=== PATIENT | female | born 1940 | race Caucasian/White ===

== ENCOUNTER 2018-11-26 07:03 | Day surgery (SDC) | payer MEDICARE, BC ==
[2018-11-26] MEDS ORDERED: fentaNYL 100 MCG/2 ML SDV ONE (07:15)
[2018-11-26] MEDS ORDERED: Propofol 200 MG/20 ML SDV ONE (07:15)
[2018-11-26] MEDS ORDERED: Sodium Chloride 0.9% 1,000 ML IV SCH (08:30)
[2018-11-26] MEDS ORDERED: Alum Hydrox/Mag Hydrox/Simeth 360 ML, Lidocaine 2% 60 ML PO PRN ×2 (09:34)
--- NOTE | 2018-11-26 12:55 | OR ---
DATE OF PROCEDURE: 11/26/2018 SURGEON: Zhou Ulloa MD PROCEDURES: 1. Barrx radiofrequency ablation. 2. EGD. COMPLICATIONS: None. MEDICAL LAB SCIENTIST: None. ANESTHESIA: MAC. PREOPERATIVE DIAGNOSIS: Bruce's esophagus. POSTOPERATIVE DIAGNOSIS: Bruce's esophagus. RISKS: Risks, benefits, alternatives, and limitations including, but not limited to infection, bleeding, the current scientific indications for this surgery, and other risks not listed here were explained to the patient, who wished to proceed. PROCEDURE IN DETAIL: The patient was placed in left lateral decubitus position. The EGD scope was introduced and advanced atraumatically in the second part of the duodenum. No duodenitis. No abnormality. The stomach itself did not show any gross abnormality. On retroflexion, the patient was noted to have a sliding hernia, which was small in size. The GE junction was measured at 30, and the top of the Bruce's esophagus was at 32 cm. A wire was advanced under direct guidance. The scope was then removed. The RFA ablation catheter was introduced and straddled the aforementioned Bruce's esophagus. The scope was introduced to verify positioning. The balloon was inflated. The RFA probe was deployed. Of note, Mucomyst was used prior to this. The device was then removed. The scraper was introduced and the ablated tissue was removed. The device was then reintroduced and under direct guidance, this was ablated a second time. The scope was then reintroduced again, after the device was removed. No abnormalities noted. The patient tolerated the procedure well. Zhou Ulloa MD /[id number]
[2018-11-26] MEDS ORDERED: Acetylcysteine 600 MG, Water For Injection,Sterile 57 ML ONE ×2 (13:00)
== END 2018-11-26 10:32 | disposition home or self-care (01) ==
LOC: JP.SDS 07:03
PROVIDERS: ATTEND Surgery
DX: K22.70 Barrett's esophagus without dysplasia (principal); I10 Essential (primary) hypertension
CPT/HCPCS: 43270; C1713; C1886; J2704; J3010; J7030

== ENCOUNTER 2019-03-11 06:51 | Day surgery (SDC) | payer MEDICARE, BC ==
[2019-03-11] MEDS ORDERED: Sodium Chloride 0.9% 1,000 ML IV SCH (07:30)
[2019-03-11] MEDS ORDERED: Midazolam 1 MG/ML 2 ML SDV ONE (08:08)
[2019-03-11] MEDS ORDERED: Propofol 200 MG/20 ML SDV ONE ×2 (08:08→08:39)
[2019-03-11] MEDS ORDERED: Glycopyrrolate 0.2 MG/ML 5 ML MDV ONE (08:08)
[2019-03-11] MEDS ORDERED: fentaNYL 100 MCG/2 ML SDV ONE (08:08)
[2019-03-11] MEDS ORDERED: Acetylcysteine 600 MG, Water For Injection,Sterile 57 ML ONE ×2 (09:00)
[2019-03-11] MEDS ORDERED: Alum Hydrox/Mag Hydrox/Simeth 360 ML, Lidocaine 2% 60 ML PO PRN ×2 (09:34)
--- NOTE | 2019-03-11 12:44 | OR ---
DATE OF PROCEDURE: 03/11/2019 SURGEON: Zhou Ulloa MD PROCEDURES: 1. Esophagogastroduodenoscopy. 2. Bruce's esophagus. 3. Radiofrequency ablation by using Barrx procedure. COMPLICATIONS: None. HYPOID GEAR TESTER: None. ANESTHESIA: MAC. PREOPERATIVE DIAGNOSIS: Bruce's esophagus. POSTOPERATIVE DIAGNOSIS: Bruce's esophagus. RISKS: Risks, benefits, alternatives, and limitations including but not limited to infection, bleeding, and injury to the esophagus including perforation explained to the patient, who wished to proceed. PROCEDURE IN DETAIL: The patient was placed in left lateral decubitus position. The EGD scope was introduced and advanced atraumatically into the duodenum. Within the stomach itself and duodenum, there were no ulcerations or inflammation. The patient had a small hiatal hernia noted. The top of the gastric fold was measured at 33. The top of intestinal metaplasia was measured at 28. A 35,000th wire was then introduced. The scope was removed. The RFA device was introduced. This was placed overlapping the gastric fold. The energy was deployed after balloon was inflated. The balloon and wire were removed. A scraper was introduced, and the ablated tissue was scraped. The wire was then reintroduced, and the procedure was repeated, ablating a second time with an overlap of 2 cm over the Bruce's esophagus. The scope was reintroduced. Destruction was noted. No abnormalities were noted. The air was removed from the stomach. The procedure was completed. The patient tolerated the procedure well. Zhou Ulloa MD /[id number]
== END 2019-03-11 10:45 | disposition home or self-care (01) ==
LOC: JP.SDS 06:51
PROVIDERS: ATTEND Surgery
DX: K22.70 Barrett's esophagus without dysplasia (principal); K44.9 Diaphragmatic hernia without obstruction or gangrene; I10 Essential (primary) hypertension
CPT/HCPCS: 43270; A9270; C1713; C1886; J2250; J2704; J3010; J3490; J7030

== ENCOUNTER 2019-05-15 07:10 | Day surgery (SDC) | payer MEDICARE, BC ==
[2019-05-15] MEDS ORDERED: Propofol 200 MG/20 ML SDV ONE (07:36)
[2019-05-15] MEDS ORDERED: Midazolam 1 MG/ML 2 ML SDV ONE (07:36)
[2019-05-15] MEDS ORDERED: fentaNYL 100 MCG/2 ML SDV ONE (07:36)
[2019-05-15] MEDS ORDERED: Sodium Chloride 0.9% 1,000 ML IV SCH (08:15)
[2019-05-15] MEDS ORDERED: Acetylcysteine 600 MG, Water For Injection,Sterile 57 ML ONE ×2 (08:45)
[2019-05-15] MEDS ORDERED: Alum Hydrox/Mag Hydrox/Simeth 360 ML, Lidocaine 2% 60 ML PO SCH ×2 (08:45)
--- NOTE | 2019-05-15 15:22 | OR ---
DATE OF PROCEDURE: 05/15/2019 SURGEON: Zhou Ulloa MD PROCEDURES: 1. Barrx ablation. 2. Esophagogastroduodenoscopy. COMPLICATIONS: None. DAIRY NUTRITION SPECIALIST: None. ANESTHESIA: MAC. RISKS: Risks, benefits, alternatives, and limitations including, but not limited to infection, bleeding, and perforation were explained to the patient, who wished to proceed. PATHOLOGY: Cold biopsy forceps biopsies of previous Bruce's location. PROCEDURE IN DETAIL: The patient was placed in left lateral decubitus position. EGD scope was introduced and advanced atraumatically into the second part of the duodenum. No abnormalities were noted. The top of the gastric fold was measured at 30, top of intestinal metaplasia was at 26. A 90-degree ablation was then performed in 2 separate locations using 2 separate times in a standard technique using Mucomyst, twice scrape, and ablation twice again. The procedure was terminated. The patient tolerated the procedure well. Zhou Ulloa MD /[id number]
== END 2019-05-15 10:39 | disposition home or self-care (01) ==
LOC: JP.SDS 07:10
PROVIDERS: ATTEND Surgery
DX: K22.70 Barrett's esophagus without dysplasia (principal); J01.01 Acute recurrent maxillary sinusitis; I10 Essential (primary) hypertension; E78.5 Hyperlipidemia, unspecified; G47.00 Insomnia, unspecified; Z98.890 Other specified postprocedural states; Z79.82 Long term (current) use of aspirin; Z79.51 Long term (current) use of inhaled steroids
CPT/HCPCS: 43239; 43270; A9270; C1713; J2250; J2704; J3010; J7030

== ENCOUNTER 2019-07-10 06:55 | Day surgery (SDC) | payer MEDICARE, BC ==
[2019-07-10] MEDS ORDERED: Sodium Chloride 0.9% 1,000 ML IV SCH (07:30)
[2019-07-10] MEDS ORDERED: fentaNYL 100 MCG/2 ML SDV ONE (07:38)
[2019-07-10] MEDS ORDERED: Propofol 200 MG/20 ML SDV ONE (07:38)
[2019-07-10] MEDS ORDERED: Acetylcysteine 600 MG, Water For Injection,Sterile 57 ML ONE ×2 (08:15)
--- NOTE | 2019-07-10 09:56 | OR ---
DATE OF PROCEDURE: 07/10/2019 SURGEON: Zhou Ulloa MD PROCEDURE: EGD with biopsies, GE junction. FINDINGS: Completely ablated Bruce's esophagus. COMPLICATIONS: None. AGENT PRODUCER: None. ANESTHESIA: MAC. RISKS: Risks, benefits, alternatives, and limitations including, but not limited to, infection, bleeding, and perforation were explained to patient, who wished to proceed. PROCEDURE IN DETAIL: The patient was placed in left lateral decubitus position. The EGD scope was introduced and advanced into the second part of the duodenum. Duodenum and stomach showed no abnormalities. The previous areas of Bruce's esophagus, which I previously ablated, appeared to be completely negated and there was no abnormalities. Cold biopsy forceps were taken of this area. The esophagus was normal. The patient tolerated the procedure well. Zhou Ulloa MD /[id number]
== END 2019-07-10 09:45 | disposition home or self-care (01) ==
LOC: JP.SDS 06:55
PROVIDERS: ATTEND Surgery
DX: K22.70 Barrett's esophagus without dysplasia (principal); I10 Essential (primary) hypertension
CPT/HCPCS: 43239; 88305; J2704; J3010; J7030

== ENCOUNTER 2021-03-14 16:40 | Inpatient (IN) | payer MEDICARE, BC ==
[2021-03-28] MEDS ORDERED: Isosulfan Blue 5 ML SDV ONE (07:00)
[2021-03-28] MEDS ORDERED: Bupivacaine 0.5% 50 ML MDV ONE (07:12)
[2021-03-28] MEDS ORDERED: Lidocaine 1% with EPINEPHrine 1:100,000 50 ML MDV ONE (07:12)
[2021-03-28] MEDS: Sodium Chloride 0.9% 1,000 ML IV SCH ×2 (08:19→12:58)
[2021-03-28] MEDS ORDERED: fentaNYL 250 MCG/5 ML SDV ONE (08:25)
[2021-03-28] MEDS ORDERED: Ondansetron 4 MG/2 ML SDV ONE (08:26)
[2021-03-28] MEDS ORDERED: Glycopyrrolate 0.2 MG/ML 5 ML MDV ONE (08:26)
[2021-03-28] MEDS ORDERED: Neostigmine Methylsulfate 1 MG/ML 5 ML Syringe ONE (08:26)
[2021-03-28] MEDS ORDERED: Propofol 200 MG/20 ML SDV ONE (08:26)
[2021-03-28] MEDS ORDERED: Succinylcholine 200 MG/10 ML MDV ONE (08:26)
[2021-03-28] MEDS ORDERED: Dexamethasone 4 MG/ML SDV ONE (08:26)
[2021-03-28] MEDS ORDERED: Rocuronium 50 MG/5 ML Vial ONE (08:26)
[2021-03-28] MEDS ORDERED: ceFAZolin 2 GM in Premix Bag 1 BAG IV ONE (10:00)
[2021-03-28] MEDS ORDERED: Benzocaine/Cetylpyridinium/Menthol Lozenge MUCMEM PRN (10:28)
[2021-03-28] MEDS ORDERED: hydrOXYzine HCL 100 MG/2 ML SDV IM PRN (10:28)
[2021-03-28] MEDS ORDERED: Bisacodyl 5 MG Tab PO PRN (10:28)
[2021-03-28] MEDS ORDERED: diphenhydrAMINE 50 MG/ML SDV IVPUSH PRN (10:28)
[2021-03-28] MEDS ORDERED: Acetaminophen/HYDROcodone 325-10 MG Tab PO PRN (10:28)
[2021-03-28] MEDS ORDERED: Lactated Ringers 1,000 ML ONE (11:25)
[2021-03-28] MEDS ORDERED: ePHEDrine 50 MG/ML SDV ONE (11:38)
[2021-03-28] MEDS ORDERED: Lidocaine 1% with EPINEPHrine 1:100,000 50 ML MDV INFILT ONE (11:39)
[2021-03-28] MEDS ORDERED: Bupivacaine 0.5% 50 ML MDV INFILT ONE (11:40)
[2021-03-28] MEDS ORDERED: Isosulfan Blue 5 ML SDV SUBCUT ONE (11:41)
== END 2021-03-28 18:45 | disposition home or self-care (01) | DRG 581 ==
LOC: JP.SDS 03-28 07:13 → EDSTATUS 03-28 08:00 → JP.MS 03-28 10:29
PROVIDERS: ADMIT Surgery; ATTEND Surgery
PROC: 0HBU0ZZ Excision of Left Breast, Open Approach (ICD-10-PCS; principal; 2021-03-28)
PROC: 07B60ZZ Excision of Left Axillary Lymphatic, Open Approach (ICD-10-PCS; 2021-03-28)
DX: D05.12 Intraductal carcinoma in situ of left breast (principal); I10 Essential (primary) hypertension; E78.5 Hyperlipidemia, unspecified; G47.00 Insomnia, unspecified; D50.9 Iron deficiency anemia, unspecified; Z85.038 Personal history of other malignant neoplasm of large intestine; Z98.890 Other specified postprocedural states; Z87.891 Personal history of nicotine dependence
CPT/HCPCS: 36415; 78195; 78195-26; 85027; 86850; 86900; 86901; A9270-GY; A9541; J0330; J0690; J1100; J2405; J2704; J2710; J3010; J3490; J7030; J7120; Q9968